=== PATIENT | male | born 1950 | race Caucasian/White ===

== ENCOUNTER 2023-05-10 11:24 | Observation (INO) | payer MEDICARE, OTHER ==
[~2023-05-10] VITALS: Ht 193 cm; Wt 113.4 kg
[2023-05-10] MEDS ORDERED: KETOROLAC TROMETHAMINE 30 MG/ML VIAL IV ONE (11:41)
[2023-05-10] MEDS ORDERED: ONDANSETRON HCL INJ 2MG/ML 2ML 2 MG/ML VIAL IV STA (11:41)
[2023-05-10] MEDS ORDERED: SODIUM CHLORIDE 0.9% 1000ML 1,000 ML IV ONE (11:45)
[2023-05-10 12:10] LABS: BASOPHILS % 0.3 % (0.0-1.0); EOSINOPHILS # (AUTO) 0.1 (0.0-0.4); EOSINOPHILS % 0.6 % (0.0-6.0); HEMATOCRIT 42.4 % (38.2-49.6); HEMOGLOBIN 14.3 g/dL (14.0-18.0); LYMPHOCYTES # (AUTO) 0.6 (1.0-3.2); LYMPHOCYTES % 8.1 % (18.0-39.1); MEAN CORPUSCULAR HEMOGLOBIN 28.4 pg (28-32); MEAN CORPUSCULAR HGB CONC 33.7 g/dL (31-35); MEAN CORPUSCULAR VOLUME 84.3 fL (81-99); MONOCYTES # (AUTO) 0.4 (0.2-0.8); MONOCYTES % 5.3 % (4.4-11.3); NEUTROPHILS # (AUTO) 6.8 (2.1-6.9); NEUTROPHILS % 85.4 % (38.7-80.0); PLATELET COUNT 192 x10e3/uL (140-360); RED BLOOD COUNT 5.03 x10e6/uL (4.3-5.7); RED CELL DISTRIBUTION WIDTH 14.1 % (11.7-14.4)
[2023-05-10 12:26] LABS: ALBUMIN/GLOBULIN RATIO 1.2 (0.8-2.0); ANION GAP 12.8 mmol/L (8-16); CALCIUM 9.2 mg/dL (8.4-10.2); CREATININE, SERUM 1.71 mg/dL (0.72-1.25); POTASSIUM 3.8 mmol/L (3.5-5.1)
[2023-05-10 15:10] LABS: COLOR,URINE YELLOW (YELLOW)
[2023-05-10 15:11] LABS: CLARITY,URINE CLEAR (CLEAR); KETONES,URINE NEGATIVE (NEGATIVE); LEUKOCYTE ESTERASE ,URINE NEGATIVE (NEGATIVE); NITRITE,URINE NEGATIVE (NEGATIVE); PROTEIN,URINE DIPSTICK NEGATIVE (NEGATIVE); URINE UROBILINOGEN 0.2 mg/dL (0.2 - 1)
[2023-05-10 15:21] LABS: BACTERIA,URINE FEW /HPF; EPITHELIAL CELLS,URINE MODERATE /LPF; MUCUS,URINE MANY (RARE); RBC,URINE 0-5 /HPF (0-5); WBC,URINE (MAN) 0-5 /HPF (0-5)
[2023-05-10] MEDS ORDERED: Morphine 2mg Syringe 2 MG/ML SYR IV PRN (15:45)
[2023-05-10] MEDS ORDERED: ONDANSETRON HCL INJ 2MG/ML 2ML 2 MG/ML VIAL IV PRN (15:45)
[2023-05-10] MEDS: SODIUM CHLORIDE 0.9% 1000ML 1,000 ML IV SCH (17:36)
[2023-05-10 20:00] VITALS: BP 151/83; PULSE 63; RESP 21; TEMP 97.8; O2SAT 99
[2023-05-10 21:00] VITALS: BP 129/80; PULSE 59; RESP 17; TEMP 97.8; O2SAT 98
[2023-05-11] VITALS (8 sets, daily range): BP systolic 127–162; BP diastolic 75–85; PULSE 54–63; RESP 17–21; TEMP 97.8–98.7; O2SAT 98–100
[2023-05-11] MEDS ORDERED: VASCULERA630 MG PO (01:23)
[2023-05-11] MEDS ORDERED: FEBUXOSTAT40 MG PO (01:23)
[2023-05-11] MEDS ORDERED: HYDROXYCHLOROQ200 MG PO (01:23)
[2023-05-11] MEDS ORDERED: ATORVASTATIN CA20 MG PO (01:23)
[2023-05-11] MEDS ORDERED: VERAPAMIL ER240 MG PO (01:23)
[2023-05-11] MEDS ORDERED: TERAZOSIN HCL5 MG PO (01:23)
[2023-05-11] MEDS ORDERED: FENOFIBRATE145 M1 PO (01:23)
[2023-05-11] MEDS ORDERED: LOSARTAN POTASS25 MG PO (01:23)
[2023-05-11] MEDS ORDERED: ELIQUIS2.5 MG PO (01:23)
[2023-05-11] MEDS: SODIUM CHLORIDE 0.9% 1000ML 1,000 ML IV SCH ×4 (02:28→22:47)
[2023-05-11] MEDS: TRAMADOL HCL 50 MG TAB PO PRN ×4 (03:40→22:47)
[2023-05-11 07:02] LABS: BASOPHILS % 0.9 % (0.0-1.0); EOSINOPHILS # (AUTO) 0.2 (0.0-0.4); EOSINOPHILS % 4.1 % (0.0-6.0); HEMATOCRIT 38.4 % (38.2-49.6); HEMOGLOBIN 12.7 g/dL (14.0-18.0); LYMPHOCYTES % 22.4 % (18.0-39.1); MEAN CORPUSCULAR HEMOGLOBIN 28.6 pg (28-32); MEAN CORPUSCULAR HGB CONC 33.1 g/dL (31-35); MEAN CORPUSCULAR VOLUME 86.5 fL (81-99); MONOCYTES # (AUTO) 0.5 (0.2-0.8); MONOCYTES % 11.2 % (4.4-11.3); NEUTROPHILS # (AUTO) 2.8 (2.1-6.9); NEUTROPHILS % 61.2 % (38.7-80.0); PLATELET COUNT 176 x10e3/uL (140-360); RED BLOOD COUNT 4.44 x10e6/uL (4.3-5.7); RED CELL DISTRIBUTION WIDTH 14.4 % (11.7-14.4)
[2023-05-11 07:35] LABS: ALBUMIN 3.3 g/dL (3.5-5.0); ALBUMIN/GLOBULIN RATIO 1.3 (0.8-2.0); ANION GAP 9.8 mmol/L (8-16); CALCIUM 8.4 mg/dL (8.4-10.2); CREATININE, SERUM 1.53 mg/dL (0.72-1.25); POTASSIUM 3.8 mmol/L (3.5-5.1)
[2023-05-12] VITALS: BP 141/82; PULSE 60; RESP 20; TEMP 97.9; O2SAT 100
[2023-05-12 04:00] VITALS: BP 145/83; PULSE 52; RESP 19; TEMP 98.5; O2SAT 100
[2023-05-12] MEDS: TRAMADOL HCL 50 MG TAB PO PRN (04:24)
[2023-05-12] MEDS: SODIUM CHLORIDE 0.9% 1000ML 1,000 ML IV SCH (04:24)
[2023-05-12 08:37] VITALS: BP 151/79; PULSE 58; RESP 16; TEMP 97.9; O2SAT 100
[2023-05-12 08:45] VITALS: BP 151/79; PULSE 58; RESP 16; TEMP 97.9; O2SAT 100
[2023-05-12] MEDS ORDERED: ULTRAM 50MG50 MG PO (10:43)
== END 2023-05-12 14:28 | disposition home or self-care (01) ==
LOC: ER 11:30 → ERHOLD 15:47 → MED/SURG2 18:46 → OBSVTOIN 05-12 09:30 → INTOOBSV 05-12 09:30
PROVIDERS: ADMIT Internal Medicine; ATTEND Internal Medicine
DX: N13.2 Hydronephrosis with renal and ureteral calculous obstruction (principal); I10 Essential (primary) hypertension; E78.5 Hyperlipidemia, unspecified; N40.0 Benign prostatic hyperplasia without lower urinary tract symptoms; M10.9 Gout, unspecified; E66.9 Obesity, unspecified; Z68.30 Body mass index [BMI] 30.0-30.9, adult; K40.90 Unilateral inguinal hernia, without obstruction or gangrene, not specified as recurrent; K80.20 Calculus of gallbladder without cholecystitis without obstruction; K57.30 Diverticulosis of large intestine without perforation or abscess without bleeding; I70.0 Atherosclerosis of aorta; Z20.822 Contact with and (suspected) exposure to COVID-19; Z86.718 Personal history of other venous thrombosis and embolism; Z86.711 Personal history of pulmonary embolism; Z79.01 Long term (current) use of anticoagulants; Z79.899 Other long term (current) drug therapy
CPT/HCPCS: 36415 ×2; 74018; 74176; 80053 ×2; 81001; 83690; 85025 ×2; 99284; G0378 ×3; J1885; J2405; J7030 ×3; U0002